=== PATIENT | male | born 1970 | race Hispanic/Latino ===

== ENCOUNTER 2025-02-14 10:49 | Emergency (ER) | payer SELFPAY ==
[~2025-02-14] VITALS: Ht 170.2 cm; Wt 76.2 kg
[2025-02-14] MEDS: teTANUS/diphthERIA TOXOID [ADULT] 0.5 ML VIAL IM ONE (11:15)
--- NOTE | 2025-02-14 11:16 | ERN ---
ED Note History of Present Illness Stated Complaint: RT THUMB LACERATION Chief Complaint: Thumb Injury Pain Time Seen by MD: 10:54 Time Seen by Midlevel: 10:58 Dictation: 54-year-old male with a history of diabetes, now with complaints of injury to the right thumb with a meat loiner just prior to arrival. Patient does not know his last tetanus. Bleeding controlled at this time Allergies: Coded Allergies: No Known Allergies (Unverified Allergy, Unknown, 02/14/25) Home Meds Active Scripts Cephalexin Monohydrate (Keflex) 500 Mg Cap, 500 MG PO TID for 7 Days, #21 CAP Prov:CRUZITO DAVID CLINICAL ALLERGIST 02/14/25 Past Medical History Past Medical History: Diabetes-Type II, High Cholesterol, Hypertension Surgical History: Other Surgical History Other: CARDIAC STENTS Review of System Dictation Constitutional: Negative for fever,chills, and weight loss Eyes: Negative for injury, pain,redness, and discharge ENT: Negative for injury,pain or swelling Cardiovascular: Negative for chest pain, palpitations, and edema Respiratory: Negative for shortness of breath, cough, and wheezing, Abdomen/GI: Negative for abdominal pain, nausea, vomiting, diarrhea, and constipation Back: Negative for injury and pain : Negative for injury, bleeding and discharge MS/Extremity: Right thumb injury Skin: Negative for rash, and discoloration Neuro: Negative for headache, weakness, numbness, tingling, and seizure Psych: Negative for suicide ideation, homicidal ideation, and hallucinations Review of Systems: was completed Initial Vital Sign VS Vital Signs Date Time Temp Pulse Resp B/P (MAP) Pulse Ox O2 Delivery O2 Flow Rate FiO2 02/14/25 10:54 98.4 101 20 128/80 99 Room Air Physical Exam Dictation General: awake, alert, NAD Head/Face: Normocephalic, atraumatic Eyes: PERRL, EOMI, vision at baseline ENT: oral cavity clear, TMs clear, no signs of infection Neck: Trachea midline, supple, no nuchal rigidity Cardiovascular: RRR, normal S1/S2, No MRGs, no JVD Respiratory: CTAB, no respiratory distress, No rales or wheezes Abdomen: Soft, non-tender, non-distended, normal bowel sounds, no guarding or rebound. Skin: Partial avulsion to the right thumb. Bleeding controlled. No bone exposed. Avulsion including the nail bed as well MS/Extremity: Pulses equal, no cyanosis, neurovascular intact, FROM Neuro: COAx4, GCS 15, strength 5/5, CN 2-12 intact, normal cerebellar exam, normal gait, Psych: Normal behavior, mood, and affect normal ED Course ED Course Orders Procedure Category Date Status Time Tetanus,Diphtheria PHA 02/14/25 Complete Tox [Adult] (Diphther 11:00 Dermabond (Dermabond) PHA 02/14/25 Complete 11:30 Current Medications Medications (Trade) Dose Ordered Sig/Pramod Route PRN Reason Start Time Stop Time Status Last Admin Dose Admin Octyl Cyanoacrylate (Dermabond) 1 each ONCE ONCE TP 02/14/25 11:30 02/14/25 11:31 DC 02/14/25 11:26 Tetanus/ Diphtheria Toxoids Adsorbed (DiphthERIA-teTANUS TOXOID [ADULT]/ DECAVAC) 0.5 ml ONCE ONCE IM 02/14/25 11:00 02/14/25 11:01 DC 02/14/25 11:15 Vital Signs Date Time Temp Pulse Resp B/P (MAP) Pulse Ox O2 Delivery O2 Flow Rate FiO2 02/14/25 10:54 98.4 101 20 128/80 99 Room Air Medical Decision Making MDM MDM: 54-year-old male with a history of diabetes, now with complaints of injury to the right thumb with a meat loiner just prior to arrival. Patient does not know his last tetanus. Bleeding controlled at this time. Area was plain and dry. Quick let applied for about 5 minutes. Dermabond applied over the avulsion support take skin barrier. Discussed with patient and a drawn bowel fallen his own to compare clean and dry. Discussed size since he does not want to return back to the emergency room Differential diagnosis: Laceration, avulsion, tendon involvement Rationale: Tests considered and ordered secondary to shared decision making include: Previous outside records reviewed: Old ER visits. Risk of complication and/or morbidity or mortality of patient management: None Medications-Per medication reconciliation Need for hospitalization: Patient does not meet criteria for hospitalization. Need for emergency major/minor surgery: No There are no social concerns with this patient. Prescription drug management Prescriptions will include symptomatic care Patient's prior external medical records from other ER visits were reviewed by me as indicated. Prior testing and results from previous visits were reviewed. Prior tests were taken into account with medical decision making and resource utilization, independent historian/historians were used to obtain complete medical history. I independently interpreted the test that were performed, results were reviewed by me and considered findings on radiology if ordered. Medical management and examination interpretation discussions were had by me with other qualified healthcare professionals as indicated for the patient's care. Procedure Wound Location: upper extremity Wound's Depth, Shape: nail-avulsed Wound Explored: clean Wound Debrided: minimal Wound Repaired With: Dermabond DX & DISP Disposition: Discharge Departure Impression: Primary Impression: Fingernail avulsion, partial Additional Impression: Fingertip avulsion Condition: Stable Scripts Cephalexin Monohydrate (Keflex) 500 Mg Cap 500 MG PO TID for 7 Days, #21 CAP Prov: CRUZITO DAVID CLINICAL ALLERGIST 02/14/25 Additional Instructions: the dermabond will fall off on its own. Return to the ER if you begin to have any signs or symptoms of infection. Complete the does of antibiotics, keep wound clean and dry. Follow up with your PCP in 1-2 days. Referrals: HARRIS VALERO MD (PCP) Time of Disposition: 11:40 I have reviewed the case, and I agree with, Diagnosis and Plan CRUZITO DAVID NP February 14, 2025 11:16
[2025-02-14] MEDS: OCTYL 2-CYANOACRYLATE 1 EACH TP ONE (11:26)
[2025-02-14] MEDS ORDERED: CEPH500B PO (11:41)
--- NOTE | 2025-02-14 12:00 | NUR ---
WOUND CARE PROVIDED USING WOUND CLEANSER.
[2025-02-14 12:19] VITALS: BP 132/70; PULSE 80; RESP 16; TEMP 98.6; O2SAT 98
== END 2025-02-14 12:19 | disposition home or self-care (01) ==
LOC: EDH 10:49
DX: S61.101A Unspecified open wound of right thumb with damage to nail, initial encounter (principal); E11.9 Type 2 diabetes mellitus without complications; I10 Essential (primary) hypertension; E78.00 Pure hypercholesterolemia, unspecified; Z95.5 Presence of coronary angioplasty implant and graft; W45.8XXA Other foreign body or object entering through skin, initial encounter; Y93.89 Activity, other specified; Y92.89 Other specified places as the place of occurrence of the external cause; Y99.8 Other external cause status
CPT/HCPCS: 90471; 90714; 99283